=== PATIENT | male | born 1995 | race Two or more races ===

== ENCOUNTER 2023-12-14 16:36 | Emergency (ER) | payer MEDICAID ==
[~2023-12-14] VITALS: Ht 172.7 cm; Wt 101.2 kg
--- NOTE | 2023-12-14 17:00 | NUR ---
BIBS FOR C/O COUGH AND CONGESTION, NAUSEA AND VOMITING X3 DAYS.
[2023-12-14 17:50] LABS: BASOPHILS # (AUTO) 0.1 K/uL (0.0-0.2); BASOPHILS % (AUTO) 0.7 % (0.0-2.0); EOSINOPHILS # (AUTO) 0.1 K/uL (0.0-0.7); EOSINOPHILS % (AUTO) 0.5 % (0.0-6.0); HEMATOCRIT 46 % (39-51); MEAN CORPUSCULAR HEMOGLOBIN 31 PG (26.0-33.0); MEAN CORPUSCULAR HGB CONC 35 g/dl (31.0-36.0); MEAN CORPUSCULAR VOLUME 88 fL (80-96); MONOCYTES # (AUTO) 0.9 K/uL (0.1-1.30); MONOCYTES % (AUTO) 5.6 % (2.0-12.0); NEUTROPHILS # (AUTO) 12.6 K/uL (1.8-8.9); NEUTROPHILS % (AUTO) 80.2 % (43.0-81.0); PLATELET COUNT (AUTO) 353 K/uL (150-450); RED BLOOD CELL COUNT(AUTO) 5.25 MIL/uL (4.5-6.0); RED CELL DISTRIBUTION WIDTH 12.5 % (11.5-15.0); WHITE BLOOD COUNT (AUTO) 15.7 K/uL (4.3-11.0)
--- NOTE | 2023-12-14 17:56 | NUR ---
covid and flu swab collected and sent
[2023-12-14 17:58] LABS: CALCIUM, SERUM 10.1 mg/dL (8.5-10.1); CREATININE 0.8 mg/dL (0.6-1.3); POTASSIUM 3.9 mmol/L (3.5-5.1)
[2023-12-14 18:04] LABS: ALBUMIN 4.7 g/dL (3.4-5.0); BILIRUBIN,DIRECT 0.1 mg/dL (0.0-0.2); BILIRUBIN,TOTAL 0.8 mg/dL (0.2-1.0); TOTAL PROTEIN, SERUM 8.1 g/dL (6.4-8.2)
--- NOTE | 2023-12-14 18:34 | NUR ---
UA sample collected and sent
[2023-12-14] MEDS ORDERED: ONDANSETRON 4 MG TAB.RAPDIS ONE ×2 (18:58→19:08)
[2023-12-14] MEDS ORDERED: GUAI180L4 PO (19:05)
[2023-12-14] MEDS: ONDANSETRON 4 MG TAB.RAPDIS PO ONE (19:09)
[2023-12-14 19:16] VITALS: BP 130/74; TEMP 98.3; O2SAT 97
--- NOTE | 2023-12-14 19:16 | NUR ---
Patient given written and verbal discharge instructions. Patient verbalizes understanding of instructions. Patient is ambulatory with steady gait. Refuses offer of group home placement. Patient given list of available shelters in surrounding area.
== END 2023-12-14 19:16 | disposition home or self-care (01) ==
LOC: ER 16:57
DX: J06.9 Acute upper respiratory infection, unspecified (principal); F32.A Depression, unspecified; Z20.822 Contact with and (suspected) exposure to COVID-19
CPT/HCPCS: 99284; 71045; 87426; 87804 ×2; 85025; 80048; 83690; 80076; 36415; Q0162 ×2

== ENCOUNTER 2023-12-24 18:15 | Emergency (ER) | payer MEDICAID ==
[~2023-12-24] VITALS: Ht 167.6 cm; Wt 102.1 kg
[~2023-12-24 18:15] MED LIST: GUAI180L4 PO
[2023-12-24 19:19] LABS: BASOPHILS # (AUTO) 0.1 K/uL (0.0-0.2); BASOPHILS % (AUTO) 0.5 % (0.0-2.0); EOSINOPHILS # (AUTO) 0.1 K/uL (0.0-0.7); EOSINOPHILS % (AUTO) 0.8 % (0.0-6.0); HEMATOCRIT 47 % (39-51); HEMOGLOBIN 15.6 g/dL (13.5-17.5); LYMPHOCYTES # (AUTO) 2.2 K/uL (0.8-4.8); MEAN CORPUSCULAR HEMOGLOBIN 30 PG (26.0-33.0); MEAN CORPUSCULAR HGB CONC 33 g/dl (31.0-36.0); MEAN CORPUSCULAR VOLUME 89 fL (80-96); MONOCYTES # (AUTO) 0.8 K/uL (0.1-1.30); MONOCYTES % (AUTO) 5.3 % (2.0-12.0); NEUTROPHILS # (AUTO) 11.3 K/uL (1.8-8.9); NEUTROPHILS % (AUTO) 78.4 % (43.0-81.0); PLATELET COUNT (AUTO) 335 K/uL (150-450); RED BLOOD CELL COUNT(AUTO) 5.23 MIL/uL (4.5-6.0); RED CELL DISTRIBUTION WIDTH 12.6 % (11.5-15.0); WHITE BLOOD COUNT (AUTO) 14.4 K/uL (4.3-11.0)
[2023-12-24 19:41] LABS: CALCIUM, SERUM 10.1 mg/dL (8.5-10.1); CREATININE 0.9 mg/dL (0.6-1.3); POTASSIUM 3.7 mmol/L (3.5-5.1)
[2023-12-24] MEDS ORDERED: ONDANSETRON HCL/PF 4 MG/2 ML VIAL ONE (19:43)
[2023-12-24] MEDS ORDERED: KETOROLAC TROMETHAMINE 15 MG/ML VIAL ONE (19:43)
[2023-12-24] MEDS: KETOROLAC TROMETHAMINE 15 MG/ML VIAL IV ONE (19:45)
[2023-12-24] MEDS: ONDANSETRON HCL/PF 4 MG/2 ML VIAL IVP ONE (19:45)
[2023-12-24 19:46] LABS: ALBUMIN 4.8 g/dL (3.4-5.0); BILIRUBIN,DIRECT 0.1 mg/dL (0.0-0.2); TOTAL PROTEIN, SERUM 8.7 g/dL (6.4-8.2)
[2023-12-24 19:49] LABS: APPEARANCE,URINE SLIGHTLY CLOUDY (CLEAR); BILIRUBIN,URINE 1+ (NEGATIVE); BLOOD, URINE 1+ Ery/uL (NEGATIVE); COLOR,URINE YELLOW (YELLOW); KETONES,URINE NEGATIVE (NEGATIVE); LEUKOCYTE ESTERASE ,URINE NEGATIVE (NEGATIVE); NITRITE, URINE NEGATIVE (NEGATIVE); PROTEIN,URINE TRACE mg/dl (NEGATIVE); UGLUCOSE NEGATIVE (NEGATIVE)
[2023-12-24 19:52] LABS: ADD URINE CULTURE NO; BACTERIA,URINE RARE /HPF (None Seen); MUCUS,URINE Moderate /LPF (None Seen); WBC,URINE 0-2 /HPF (0-3)
[2023-12-24] MEDS ORDERED: IV NS 0.9% 250 ML IV ONE (19:55)
[2023-12-24] MEDS ORDERED: IOHEXOL-300 100 ML VIAL IV ONE (19:55)
[2023-12-24] MEDS ORDERED: CT SWABBABLE VALVE TRANS SET 1 EA INFUS.SET MC ONE (19:55)
[2023-12-24] MEDS ORDERED: ONDA4TAB11 PO (22:12)
[2023-12-24] MEDS ORDERED: DICY20TA11 PO (22:12)
[2023-12-24 22:27] VITALS: BP 135/86; TEMP 98; O2SAT 99
== END 2023-12-24 22:28 | disposition home or self-care (01) ==
LOC: ER 18:15
DX: K76.0 Fatty (change of) liver, not elsewhere classified (principal); R10.13 Epigastric pain; F32.A Depression, unspecified; F20.9 Schizophrenia, unspecified; Z79.899 Other long term (current) drug therapy
CPT/HCPCS: 99285; 74177; 96374; 96375; 93005; 85025; 80048; 83690; 80076; 81001; 36415; 84484; J2405; J7050; Q9967; J1885

== ENCOUNTER 2023-12-31 15:27 | Emergency (ER) | payer MEDICAID ==
[~2023-12-31] VITALS: Ht 180.3 cm; Wt 101.2 kg
[~2023-12-31 15:27] MED LIST changes: +DICY20TA11 PO; +ONDA4TAB11 PO
[2023-12-31 15:40] VITALS: TEMP 98.1
[2023-12-31 16:37] LABS: BASOPHILS # (AUTO) 0.2 K/uL (0.0-0.2); BASOPHILS % (AUTO) 1.1 % (0.0-2.0); EOSINOPHILS # (AUTO) 0.1 K/uL (0.0-0.7); EOSINOPHILS % (AUTO) 0.8 % (0.0-6.0); HEMATOCRIT 47 % (39-51); HEMOGLOBIN 15.5 g/dL (13.5-17.5); LYMPHOCYTES # (AUTO) 2.5 K/uL (0.8-4.8); LYMPHOCYTES % (AUTO) 18.8 % (20.0-44.0); MEAN CORPUSCULAR HEMOGLOBIN 29 PG (26.0-33.0); MEAN CORPUSCULAR HGB CONC 33 g/dl (31.0-36.0); MEAN CORPUSCULAR VOLUME 89 fL (80-96); MONOCYTES # (AUTO) 0.7 K/uL (0.1-1.30); MONOCYTES % (AUTO) 5.1 % (2.0-12.0); NEUTROPHILS % (AUTO) 74.2 % (43.0-81.0); PLATELET COUNT (AUTO) 361 K/uL (150-450); RED CELL DISTRIBUTION WIDTH 12.5 % (11.5-15.0); WHITE BLOOD COUNT (AUTO) 13.4 K/uL (4.3-11.0)
[2023-12-31] MEDS: IV NS 0.9% 1,000 ML BAG IV ONE (16:43)
[2023-12-31 16:44] LABS: CALCIUM, SERUM 10.4 mg/dL (8.5-10.1); CARBON DIOXIDE 25 mmol/L (21-32); CHLORIDE 103 mmol/L (98-107); CREATININE 0.8 mg/dL (0.6-1.3); GLUCOSE 98 mg/dL (74-106); POTASSIUM 4.1 mmol/L (3.5-5.1); SODIUM SERUM 141 mmol/L (136-145); UREA NITROGEN, BLOOD 10 mg/dL (7-18)
[2023-12-31] MEDS: PANTOPRAZOLE 40 MG VIAL IV ONE (16:44)
[2023-12-31] MEDS: FAMOTIDINE/PF INJ 20 MG/2 ML VIAL IV ONE (16:44)
[2023-12-31] MEDS: METOCLOPRAMIDE HCL 10 MG/2 ML VIAL IV ONE (16:44)
[2023-12-31] MEDS: MAG HYDROX/AL HYDROX/SIMETH 30 ML UDC PO ONE (16:45)
[2023-12-31] MEDS: KETOROLAC TROMETHAMINE 15 MG/ML VIAL IV ONE (16:45)
[2023-12-31] MEDS: LIDOCAINE VISCOUS 2% UD 15 ML UDC MM ONE (16:45)
[2023-12-31 16:51] LABS: ALANINE AMINOTRANSFERASE 75 U/L (12-78); ALBUMIN 4.9 g/dL (3.4-5.0); ALKALINE PHOSPHATASE 99 U/L (46-116); ASPARTATE AMINOTRANSFERASE 30 U/L (15-37); BILIRUBIN,DIRECT 0.1 mg/dL (0.0-0.2); BILIRUBIN,TOTAL 0.6 mg/dL (0.2-1.0); LIPASE 35 U/L (16-77); TOTAL PROTEIN, SERUM 8.7 g/dL (6.4-8.2)
[2023-12-31 16:55] LABS: LACTIC ACID 2.4 mmol/L (0.4-2.0)
[2023-12-31 17:22] LABS: APPEARANCE,URINE CLEAR (CLEAR); BILIRUBIN,URINE NEGATIVE (NEGATIVE); BLOOD, URINE TRACE-INTA Ery/uL (NEGATIVE); COLOR,URINE YELLOW (YELLOW); KETONES,URINE NEGATIVE (NEGATIVE); LEUKOCYTE ESTERASE ,URINE NEGATIVE (NEGATIVE); NITRITE, URINE NEGATIVE (NEGATIVE); PROTEIN,URINE NEGATIVE (NEGATIVE); UGLUCOSE NEGATIVE (NEGATIVE); UROBILINOGEN,URINE 0.2 EU/dL (0.2)
[2023-12-31] MEDS ORDERED: ONDANSETRON HCL/PF 4 MG/2 ML VIAL ONE (17:31)
[2023-12-31] MEDS: ONDANSETRON HCL/PF 4 MG/2 ML VIAL IV ONE (17:33)
[2023-12-31 17:42] LABS: ADD URINE CULTURE NO; BACTERIA,URINE 1+ /HPF (None Seen); WBC,URINE 0-2 /HPF (0-3)
[2023-12-31 17:43] LABS: MUCUS,URINE Few /LPF (None Seen); SPERM,URINE Few /HPF (None Seen); SQUAMOUS EPITHELIAL CELL,UR None Seen /HPF (None Seen)
[2023-12-31] MEDS ORDERED: GUAIFENESIN 300 MG/15 ML UDC ONE (18:04)
[2023-12-31] MEDS: GUAIFENESIN 300 MG/15 ML UDC PO ONE (18:15)
[2023-12-31] MEDS ORDERED: AMOX-430 PO (19:56)
[2023-12-31] MEDS ORDERED: FAMO20TA80 PO (19:56)
[2023-12-31] MEDS ORDERED: PANT40TA49 PO (19:56)
[2023-12-31 20:38] VITALS: BP 120/80; O2SAT 98
== END 2023-12-31 20:21 | disposition home or self-care (01) ==
LOC: ER 15:37
DX: K52.9 Noninfective gastroenteritis and colitis, unspecified (principal); F32.A Depression, unspecified; Z59.00 Homelessness unspecified
CPT/HCPCS: 99284; 96374; 96375; 71045; 96361; 85025; 80048; 87086; 83605 ×2; 83690; 80076; 81001; 36415; J3490; J2765; J2405; J7030; J2470; J1885